=== PATIENT | female | born 1960 | race Caucasian/White ===

== ENCOUNTER 2020-10-31 16:20 | Emergency (ER) | payer MEDICAID, OTHER ==
[~2020-10-31] VITALS: Ht 152 cm; Wt 130.0 kg
[2020-10-31 17:09] LABS: BASOPHILS % (AUTO) 1 % (0-10); EOSINOPHILS # (AUTO) 0.2 10^3/uL (0.0-0.3); EOSINOPHILS % (AUTO) 3 % (0-10); HEMATOCRIT 45 % (35-52); HEMOGLOBIN 14.3 g/dL (11.5-16.0); LYMPHOCYTES # (AUTO) 1.6 10^3/uL (1.0-4.0); LYMPHOCYTES % (AUTO) 19 % (12-44); MEAN CORPUSCULAR HEMOGLOBIN 27 pg (25-34); MEAN CORPUSCULAR HGB CONC 32 g/dL (32-36); MEAN CORPUSCULAR VOLUME 83 fL (80-99); MEAN PLATELET VOLUME 10.7 fL (9.0-12.2); MONOCYTES # (AUTO) 0.6 10^3/uL (0.0-1.0); MONOCYTES % (AUTO) 8 % (0-12); NEUTROPHILS # (AUTO) 5.7 10^3/uL (1.8-7.8); NEUTROPHILS % (AUTO) 70 % (42-75); PLATELET COUNT 283 10^3/uL (130-400); WHITE BLOOD COUNT 8.2 10^3/uL (4.3-11.0)
[2020-10-31 17:24] LABS: ALANINE AMINOTRANSFERASE 47 U/L (0-55); ALBUMIN 4.2 GM/DL (3.2-4.5); ALKALINE PHOSPHATASE 126 U/L (40-136); BILIRUBIN,TOTAL 0.4 MG/DL (0.1-1.0); BUN/CREATININE RATIO 24; CALCIUM 9.8 MG/DL (8.5-10.1); CARBON DIOXIDE 20 MMOL/L (21-32); CHLORIDE 102 MMOL/L (98-107); CREATININE SERUM 0.76 MG/DL (0.60-1.30); GFR ESTIMATED > 60; GLUCOSE 229 MG/DL (70-105); SODIUM 137 MMOL/L (135-145); TOTAL PROTEIN 8.1 GM/DL (6.4-8.2)
--- NOTE | 2020-10-31 18:02 | Diagnostic Imaging Report ---
EXAMINATION: Chest radiograph, portable AP view. DATE: 10/31/2020 5:23 PM INDICATION: 60-year-old female, cough, shortness of breath. COMPARISON: None. FINDINGS: Heart size and mediastinal contours are grossly unremarkable. There is no identified pneumothorax. There is no large pleural effusion. There is no identified focal airspace consolidation. There are technical limitations of the exam relating to patient body habitus and difficulties with exposure. IMPRESSION: No identified acute cardiopulmonary abnormality. Dictated by: Dictated on workstation # [id number]
[2020-10-31] MEDS ORDERED: AZIT250T12 PO (18:43)
--- NOTE | 2020-10-31 18:43 | ED Respiratory ---
General Chief Complaint: Respiratory Problems Stated Complaint: ASTHMA ATTACKS Nursing Triage Note: AMBULATED TO ROOM 10 WITH COMPLAINTS OF SOA AND PAIN IN LEFT SHOULDER STARTING ON MONDAY. STATES SHE HAS A HX OF ASTHMA AND PNEUMONIA. PT HAD COVID IN MAY AND RECIEVED HER FIRST COVID VACCINATION ON MONDAY. Source: patient Exam Limitations: no limitations History of Present Illness Date Seen by Provider: Oct 31, 2020 Time Seen by Provider: 16:50 Initial Comments This 60-year-old woman presents to the emergency room with complaints of shortness of breath, cough productive of sputum, and pleuritic left posterior chest pain for the past few days. She has a history of asthma and pneumonia. She had COVID-19 infection in May and received her first Covid vaccination injection 2 days ago. She is visiting from out of town. She is diabetic and obese. She is afebrile. Sputum is brown in appearance. Allergies and Home Medications Allergies Coded Allergies: metoclopramide (Verified Adverse Reaction, Severe, ANXIETY, 10/31/20) Home Medications Azithromycin 250 Mg Tablet, 250 MG PO UD TAKE 2 TABLETS ON DAY ONE THEN TAKE 1 TABLET DAILY FOR FOUR MORE DAYS Prescribed by: LARS CHAIREZ on 10/31/20 0982 Patient Home Medication List Home Medication List Reviewed: Yes Review of Systems Review of Systems Constitutional: no symptoms reported EENTM: no symptoms reported Respiratory: see HPI Cardiovascular: no symptoms reported Gastrointestinal: no symptoms reported Genitourinary: no symptoms reported Musculoskeletal: see HPI Skin: no symptoms reported Psychiatric/Neurological: No Symptoms Reported Hematologic/Lymphatic: No Symptoms Reported Past Hxbcwmr-Jdcaka-Inpyjf Hx Past Med/Social Hx: Reviewed Nursing Past Med/Soc Hx Patient Social History Alcohol Use: Denies Use Smoking Status: Never a Smoker Recent Infectious Disease Expo: No Recent Hopitalizations: No Seasonal Allergies Seasonal Allergies: No Past Medical History Surgeries: Yes Section, Orthopedic Respiratory: Yes (COVID 06/19) Asthma, Pneumonia Cardiac: No Neurological: No Genitourinary: No Gastrointestinal: No Musculoskeletal: No Endocrine: Yes Diabetes, Insulin dep Cancer: No Psychosocial: No Integumentary: No Physical Exam Vital Signs - First Documented 10/31/20 16:35 Temp 36.7 Pulse 122 Resp 18 B/P (MAP) 189/106 (133) Pulse Ox 97 O2 Delivery Room Air Capillary Refill : Less Than 3 Seconds Height: '" Weight: lbs. oz. kg; 56.00 BMI Method: General Appearance: WD/WN, no apparent distress, obese HEENT: PERRL/EOMI, normal ENT inspection Neck: normal inspection Respiratory: lungs clear, no respiratory distress, no accessory muscle use, decreased breath sounds Cardiovascular: regular rate, rhythm, no edema, no murmur Gastrointestinal: normal bowel sounds, non tender, soft Extremities: non-tender, normal inspection, no pedal edema, no calf tenderness Neurologic/Psychiatric: spar finisher II-XII nml as tested, no motor/sensory deficits, alert, normal mood/affect, oriented x 3 Skin: normal color, warm/dry Progress/Results/Core Measures Suspected Sepsis Recent Fever Within 48 Hours: No Infection Criteria Present: None New/Unexplained Altered Menta: No Sepsis Screen: No Definite Risk SIRS Temperature: Pulse: 122 Respiratory Rate: 18 Laboratory Tests 10/31/20 16:45: White Blood Count 8.2 Blood Pressure 189 /106 Mean: 133 Laboratory Tests 10/31/20 16:45: Creatinine 0.76, Platelet Count 283, Total Bilirubin 0.4 Results/Orders Lab Results Laboratory Tests Test 10/31/20 16:45 10/31/20 16:55 Range/Units White Blood Count 8.2 4.3-11.0 10^3/uL Red Blood Count 5.40 H 3.80-5.11 10^6/uL Hemoglobin 14.3 11.5-16.0 g/dL Hematocrit 45 35-52 % Mean Corpuscular Volume 83 80-99 fL Mean Corpuscular Hemoglobin 27 25-34 pg Mean Corpuscular Hemoglobin Concent 32 32-36 g/dL Red Cell Distribution Width 13.3 10.0-14.5 % Platelet Count 283 130-400 10^3/uL Mean Platelet Volume 10.7 9.0-12.2 fL Immature Granulocyte % (Auto) 0 % Neutrophils (%) (Auto) 70 42-75 % Lymphocytes (%) (Auto) 19 12-44 % Monocytes (%) (Auto) 8 0-12 % Eosinophils (%) (Auto) 3 0-10 % Basophils (%) (Auto) 1 0-10 % Neutrophils # (Auto) 5.7 1.8-7.8 10^3/uL Lymphocytes # (Auto) 1.6 1.0-4.0 10^3/uL Monocytes # (Auto) 0.6 0.0-1.0 10^3/uL Eosinophils # (Auto) 0.2 0.0-0.3 10^3/uL Basophils # (Auto) 0.0 0.0-0.1 10^3/uL Immature Granulocyte # (Auto) 0.0 0.0-0.1 10^3/uL D-Dimer 0.37 0.00-0.49 UG/ML Sodium Level 137 135-145 MMOL/L Potassium Level 4.0 3.6-5.0 MMOL/L Chloride Level 102 98-107 MMOL/L Carbon Dioxide Level 20 L 21-32 MMOL/L Anion Gap 15 H 5-14 MMOL/L Blood Urea Nitrogen 18 7-18 MG/DL Creatinine 0.76 0.60-1.30 MG/DL Estimat Glomerular Filtration Rate > 60 BUN/Creatinine Ratio 24 Glucose Level 229 H 70-105 MG/DL Calcium Level 9.8 8.5-10.1 MG/DL Corrected Calcium 9.6 8.5-10.1 MG/DL Total Bilirubin 0.4 0.1-1.0 MG/DL Aspartate Amino Transf (AST/SGOT) 21 5-34 U/L Alanine Aminotransferase (ALT/SGPT) 47 0-55 U/L Alkaline Phosphatase 126 40-136 U/L C-Reactive Protein High Sensitivity 1.66 H 0.00-0.50 MG/DL Total Protein 8.1 6.4-8.2 GM/DL Albumin 4.2 3.2-4.5 GM/DL Procalcitonin 0.06 <0.10 NG/ML Coronavirus 2019 (RYAN) Negative Negative Micro Results Microbiology 10/31/20 Influenza Types A,B Antigen (MARYANNE) - Final, Complete My Orders Orders - LARS VEGA MD Influenza A And B Antigens (10/31/20 17:01) Covid 19 Inhouse Test (10/31/20 17:01) Cbc With Automated Diff (10/31/20 17:02) Comprehensive Metabolic Panel (10/31/20 17:02) Hs C Reactive Protein (10/31/20 17:02) Fibrin Degradation Products (10/31/20 17:02) Procalcitonin (Pct) (10/31/20 17:02) Chest 1 View, Ap/Pa Only (10/31/20 17:02) Vital Signs/I&O 10/31/20 10/31/20 16:35 18:49 Temp 36.7 36.7 Pulse 122 91 Resp 18 18 B/P (MAP) 189/106 (133) 162/98 (133) Pulse Ox 97 97 O2 Delivery Room Air Capillary Refill : Less Than 3 Seconds Blood Pressure Mean: 133 Progress Note : Progress Note Work-up was unremarkable. Patient is fairly high risk for pulmonary infections with her history of asthma, history of pneumonia, obesity, and insulin-dependent diabetes. For this reason a azithromycin that was prescribed. She received education from this provider regarding proper use of inhaler and a spacer was dispensed. A azithromycin was sent to the pharmacy. Patient used inhaler during her ER visit with improvement in symptoms. Diagnostic Imaging Diagonstic Imaging: Xray Plain Films/CT/US/NM/MRI: chest Comments Chest x-ray reviewed by me and report reviewed. See report below: NAME: SHANEL VILLALPANDO [facility] REC#: [id number] PT STATUS: DEP ER : 1960 PHYSICIAN: LARS VEGA MD ADMIT DATE: 10/31/20/ER Signed Date of Exam:10/31/20 CHEST 1 VIEW, AP/PA ONLY EXAMINATION: Chest radiograph, portable AP view. DATE: 10/31/2020 5:23 PM INDICATION: 60-year-old female, cough, shortness of breath. COMPARISON: None. FINDINGS: Heart size and mediastinal contours are grossly unremarkable. There is no identified pneumothorax. There is no large pleural effusion. There is no identified focal airspace consolidation. There are technical limitations of the exam relating to patient body habitus and difficulties with exposure. IMPRESSION: No identified acute cardiopulmonary abnormality. Dictated by: Dictated on workstation # [id number] Dict: 10/31/20 1756 Trans: 10/31/201915 PJE [id number] Interpreted by: DANNY CHARLES MD Electronically signed by: DANNY CHARLES MD 10/31/201915 Departure Impression Primary Impression: Asthma exacerbation Qualified Codes: J45.901 - Unspecified asthma with (acute) exacerbation Additional Impressions: Acute bronchitis Qualified Codes: J20.9 - Acute bronchitis, unspecified Pleuritic chest pain Disposition: 01 HOME, SELF-CARE Condition: Improved Departure-Patient Inst. Decision time for Depature: 18:30 Referrals: NO,LOCAL PHYSICIAN (PCP/Family) Primary Care Physician Patient Instructions: Asthma, Adult (DC), Acute Bronchitis Add. Discharge Instructions: Complete azithromycin as prescribed. Use your albuterol inhaler up to 4 puffs in a 4-hour period of time. You may use ibuprofen up to 600 mg every 6 hours as needed for short-term relief of pain. Tylenol (acetaminophen) may also be used up to 1000 mg every 6 hours. Ibuprofen should not be used for long-term pain relief in diabetes. Drink plenty of clear liquids to stay well-hydrated. Call with questions or concerns. Return to the emergency room if you have worsening symptoms. All discharge instructions reviewed with patient and/or family. Voiced understanding. Scripts Azithromycin (Azithromycin) 250 Mg Tablet 250 MG PO UD, #6 TAB TAKE 2 TABLETS ON DAY ONE THEN TAKE 1 TABLET DAILY FOR FOUR MORE DAYS Prov: LARS VEGA MD 10/31/20 LARS VEGA MD Oct 31, 2020 18:43
[2020-10-31 18:49] VITALS: BP 162/98
== END 2020-10-31 18:49 | disposition home or self-care (01) ==
LOC: ER 16:23
DX: J45.901 Unspecified asthma with (acute) exacerbation (principal); J20.9 Acute bronchitis, unspecified; E11.9 Type 2 diabetes mellitus without complications; E66.9 Obesity, unspecified; Z87.01 Personal history of pneumonia (recurrent); Z79.4 Long term (current) use of insulin; Z20.822 Contact with and (suspected) exposure to COVID-19; Z88.8 Allergy status to other drugs, medicaments and biological substances
CPT/HCPCS: 71045; 80053; 84145; 85025; 85379; 86141; 87804; 99284; U0002; 36415; 87635